=== PATIENT | female | born 1965 | race Two or more races ===

== ENCOUNTER 2018-01-16 19:00 | Emergency (ER) | payer OTHER ==
[2018-01-16 19:11] VITALS: BP 165/110; PULSE 91; RESP 18; TEMP 98.1; O2SAT 95
[2018-01-16] MEDS ORDERED: IBUPROFEN 600 MG TAB PO ONE (19:12)
--- NOTE | 2018-01-16 19:20 | EDPHY ---
H & P Stated Complaint: finger injury Time Seen by Provider: 01/16/18 19:17 HPI/ROS: HPI: This is a 52-year-old female who presents with Chief Complaint: Right middle finger injury Location: Right middle finger Quality: Injury Duration: Prior to arrival Signs and Symptoms: No bleeding, no radiation, no numbness, no weakness, no tingling, no incontinence, no decreased range of motion, no swelling, + pain, + bruising Timing: Acute Severity: [id number] Context: Patient is right-hand dominant, works at the hospital in the EVS department, presents with complaints of right middle finger injury at the nail. She was trying to lift up a piece of machinery and dropped it and landed directly on her finger. She reports constant, moderate, immediate pain that has slowly resolved. Pain worsens with used to palpation. Nail is discolored and bruise. Denies paresthesias/decreased range of motion/weakness. Modifying Factors: None Comment: ROS: see HPI Constitutional: No fever, no chills, no weight loss Eyes: No blurred vision Respiratory: No shortness of breath, no cough Cardiovascular: No chest pain Gastrointestinal: No nausea, no vomiting no diarrhea Genitourinary: No dysuria Extremities: No myalgias Neurologic: No weakness, no numbness Skin: No rashes Hematologic: No bruising, no bleeding MEDICAL/SURGICAL/SOCIAL HISTORY: Medical history: Depression Surgical history: Appendectomy, ortho surgery Social history: Employed. Family history noncontributory. CONSTITUTIONAL: awake and alert, no obvious distress Cardiovascular: Normal S1/S2, regular rate, regular rhythm, without murmur rub or gallop. PULMONARY/CHEST: Symmetrical and nontender. no crepitus. Clear to auscultation bilaterally. Good air movement. No accessory muscle usage. ABDOMEN: Soft, nondistended, nontender, no ecchymosis. PELVIC: no pain with rocking; bilateral hips flexion 125 degrees, extension 30 degrees, with no pain internal rotation and no pain external rotation. BACK: No midline tenderness, no paraspinous spasm, deep tendon reflexes 2/2, no pain with straight leg raise EXTREMITIES: 2/2 pulses, strength 5/5, right middle finger at the proximal portion of the nail bed; mild amount of bruising; no subungual hematoma. DIP/PIP /MCP flexion/extension intact with good light touch sensation. no deformities, no clubbing, no cyanosis or edema. NEUROLOGICAL: no focal neuro deficits. GCS 15. Light touch sensation intact. SKIN: Warm and dry, no erythema. no rash. Good capillary refill. 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 Exam Limitations: Language barrier - Personal History Tetanus Vaccine Date: < 10 years - Medical/Surgical History Hx Asthma: No Hx Chronic Respiratory Disease: No Hx Diabetes: No Hx Cardiac Disease: No Hx Renal Disease: No Hx Cirrhosis: No Hx Alcoholism: No Hx HIV/AIDS: No Hx Splenectomy or Spleen Trauma: No Other PMH: APPY, DEPRESSION, ORTH SURG - Social History Smoking Status: Never smoked Constitutional: Initial Vital Signs Temperature (C) 36.7 C 01/16/18 19:09 Heart Rate 91 01/16/18 19:09 Respiratory Rate 18 01/16/18 19:09 Blood Pressure 165/110 H 01/16/18 19:09 O2 Sat (%) 95 01/16/18 19:09 O2 Delivery Mode Room Air Allergies/Adverse Reactions: No Known Allergies Allergy (Unverified 07/22/11 18:53) Home Medications: Medication Instructions Recorded LORazepam [Ativan 1 mg (RX)] 1 mg PO HS PRN 06/13/13 Pharmacist Completed 06/13/13 06/13/13 Hydrocodone Bit/Acetaminophen 1 tab PO Q4-6PRN PRN #14 tab 08/29/13 [Vicodin 5/500] HYDROcodone/HOMATROPINE HYCODA 5 - 10 ml PO HS PRN #100 ml 01/09/16 [Hycodan Syrup] Medical Decision Making - Diagnostics Imaging Results: Imaging Impressions Finger X-Ray 01/16/18 19:17 Impression: There is no acute osseous abnormality identified. ED Course/Re-evaluation: Given 600 mg of ibuprofen and right middle finger x-ray ordered No signs of neurovascular compromise/tenting of skin/compartment syndrome/ extremities and joints examined above and below area of concern and are neurovascularly intact. No indication for nail trephination X-ray my read shows no signs of fracture/dislocation Advised rice therapy This patient was seen under the supervision of my secondary supervising physician. I evaluated care for this patient independently. Differential Diagnosis: Differential diagnosis includes but is not limited to contusion, nerve injury, tendon injury, phalanx fracture. - Data Points Medications Given: Discontinued Medications Ibuprofen (Motrin) 600 mg PO EDNOW ONE Stop: 01/16/18 19:13 Last Admin: 01/16/18 19:14 Dose: 600 mg Departure - Departure Disposition: Home, Routine, Self-Care Clinical Impression: Finger nail contusion Qualifiers: Encounter type: initial encounter Qualified Code(s): S60.10XA - Contusion of unspecified finger with damage to nail, initial encounter Finger contusion Qualifiers: Encounter type: initial encounter Finger: middle finger Damage to nail status: with damage Laterality: right Qualified Code(s): S60.131A - Contusion of right middle finger with damage to nail, initial encounter Condition: Good Instructions: Subungual Hematoma (ED), Contusion in Adults (ED) Additional Instructions: Take Tylenol 650 mg every 4 hours and/or Ibuprofen 600 mg every 8 hours with food as needed for pain. Apply ice for 30 minutes at a time; 2-3 times per day for the next 1-2 days. Limit use of your right middle finger until pain resolved. The x-rays obtained in the emergency department today demonstrate no evidence of an obvious fracture. Sometimes fractures are not obvious on the initial set of x-rays performed in the ED. For this reason, you should have repeat x-rays performed in 7-10 days if you are having any pain exclude the possibility of an occult fracture. ------ [place] Tylenol 650mg cada 4 horas y/o ibuprofeno 600mg cada 8 horas con comida cuando lo necesite para el dolor. Use hielo por 30 minutos a la vez; 2-3 veces por da por los prximos 11-2 park. Limite el uso de sandoval dedo medio derecho hasta que el dolor se haiga resuelto Las radiografas obtenidas en la felix de emergencias hoy demuestran ninguna evidencia de jose fractura obvia. A veces fracturas no son obvias en las radiografa iniciales de la felix de emergencias. por esta razn, debe tener radiografas otra vez en 7-10 park si tiene dolor, a descartar la posibilidad de jose fractura oculta. Referrals: [facility],. [Clinic] - As per Instructions Print Language: Occitan
== END 2018-01-16 20:07 | disposition home or self-care (01) ==
DX: S60.131A Contusion of right middle finger with damage to nail, initial encounter (principal); W20.8XXA Other cause of strike by thrown, projected or falling object, initial encounter; Y92.238 Other place in hospital as the place of occurrence of the external cause; Y99.0 Civilian activity done for income or pay; Y93.F2 Activity, caregiving, lifting

== ENCOUNTER → 2018-02-23 | Outpatient (CLI) | payer OTHER | LOC: CIMAGING 12:26 | PROVIDERS: ATTEND Family Medicine | DX: M25.811 Other specified joint disorders, right shoulder (principal); N76.0 Acute vaginitis; Z28.3 Underimmunization status | CPT/HCPCS: 73030-PO ==

== ENCOUNTER → 2018-03-23 | Outpatient (CLI) | payer OTHER | LOC: FIMAGING 13:48 | PROVIDERS: ATTEND Family Medicine | DX: Z12.31 Encounter for screening mammogram for malignant neoplasm of breast (principal) ==

== ENCOUNTER 2019-03-10 21:32 | Emergency (ER) | payer OTHER ==
[2019-03-10] MEDS ORDERED: PROPARACAINE 0.5% 15 ML OPHT DROP ONE (21:47)
[2019-03-10] MEDS ORDERED: FLUORESCEIN SODIUM 1 MG STRIP OP ONE ×2 (21:52→22:04)
[2019-03-10] MEDS ORDERED: TOBRAMYCIN 0.3% SOLN PREPACK OPHT.BTL TAKEHOME ONE (21:57)
[2019-03-10] MEDS ORDERED: PROPARACAINE 0.5% 15 ML OPHT DROP LEFTEYE ONE (22:04)
== END 2019-03-10 22:30 | disposition home or self-care (01) ==
DX: S05.02XA Injury of conjunctiva and corneal abrasion without foreign body, left eye, initial encounter (principal); H10.212 Acute toxic conjunctivitis, left eye; Y92.239 Unspecified place in hospital as the place of occurrence of the external cause; Y99.0 Civilian activity done for income or pay

== ENCOUNTER → 2019-04-19 | Outpatient (CLI) | payer OTHER | LOC: FIMAGING 13:47 ==

== ENCOUNTER → 2019-05-07 | Outpatient (CLI) | payer OTHER | LOC: FIMAGING 10:30 ==